=== PATIENT | female | born 1995 | race Caucasian/White ===

== ENCOUNTER 2016-07-28 09:29 | Emergency (ER) | payer OTHER ==
[~2016-07-28] VITALS: Ht 172.7 cm; Wt 56.7 kg
[2016-07-28 10:00] VITALS: BP 119/63
[2016-07-28 10:27] LABS: KETONES,URINE NEGATIVE (NEGATIVE); LEUKOCYTE ESTERASE ,URINE 3+ (NEGATIVE)
[2016-07-28 10:43] LABS: ADD UA MICROSCOPIC YES
[2016-07-28 10:44] LABS: PREGNANCY TEST URINE QUAL NEGATIVE (NEGATIVE)
[2016-07-28 10:45] LABS: ADD URINE CULTURE YES; RBC,URINE 21-50 /HPF (0-2); WBC,URINE 21-50 /HPF (0-3)
== END 2016-07-28 11:27 | disposition home or self-care (01) ==
LOC: ER 09:32
DX: N39.0 Urinary tract infection, site not specified (principal)
CPT/HCPCS: 81000-TC; 84703-TC; 87086-TC; 87186-TC; A4606; Z7610

== ENCOUNTER 2016-08-07 09:35 | Emergency (ER) | payer OTHER ==
[~2016-08-07] VITALS: Ht 172.7 cm; Wt 56.7 kg
[2016-08-07 09:41] VITALS: BP 135/79
[2016-08-07 10:29] LABS: KETONES,URINE NEGATIVE (NEGATIVE); LEUKOCYTE ESTERASE ,URINE 3+ (NEGATIVE)
[2016-08-07 10:30] LABS: ADD UA MICROSCOPIC YES
[2016-08-07 10:31] LABS: PREGNANCY TEST URINE QUAL NEGATIVE (NEGATIVE)
[2016-08-07 10:33] LABS: ADD URINE CULTURE YES; RBC,URINE TOO NUMEROUS TO COUN /HPF (0-2)
== END 2016-08-07 10:25 | disposition home or self-care (01) ==
LOC: ER 09:36
DX: N39.0 Urinary tract infection, site not specified (principal)
CPT/HCPCS: 81001; 84703; 87077; 87086; 87186; 99284; A4606; Z7610; 81000-TC

== ENCOUNTER 2016-09-25 07:59 | Emergency (ER) | payer OTHER ==
[~2016-09-25] VITALS: Ht 172.7 cm; Wt 57.2 kg
[2016-09-25 08:08] VITALS: BP 140/90
== END 2016-09-25 09:07 | disposition home or self-care (01) ==
LOC: ER 08:02
DX: J06.9 Acute upper respiratory infection, unspecified (principal); B34.9 Viral infection, unspecified; R51 Headache
CPT/HCPCS: A4606; Z7610

== ENCOUNTER 2017-06-13 12:13 | Emergency (ER) | payer MEDICAID, OTHER ==
[~2017-06-13] VITALS: Ht 172.7 cm; Wt 56.7 kg
[2017-06-13 12:13] VITALS: BP 122/71
[2017-06-13] MEDS ORDERED: IBUPROFEN 400 MG TABLET PO ONE (13:00)
[2017-06-13] MEDS ORDERED: DEXAMETHASONE SOD PHOSPHATE 4 MG/ML VIAL IM ONE (13:00)
[2017-06-13] MEDS ORDERED: IBUPROFEN 400 MG TABLET ONE (13:05)
[2017-06-13] MEDS ORDERED: DEXAMETHASONE SOD PHOSPHATE 10 MG/ML VIAL ONE (13:05)
== END 2017-06-13 14:39 | disposition home or self-care (01) ==
LOC: ER 12:14
DX: J02.9 Acute pharyngitis, unspecified (principal); J04.0 Acute laryngitis
CPT/HCPCS: 87070; 87880; 96372; 99283; A4606; J1100; Z7610; 86403-TC